=== PATIENT | female | born 1970 | race Caucasian/White ===

== ENCOUNTER 2022-01-21 14:01 | Emergency (ER) | payer OTHER, SELFPAY ==
--- NOTE | ~2022-01-21 | XR_ITS ---
EXAMINATION: XR chest 1V portable Exam Date/Time: 01/21/2022 16:15 CDT CLINICAL HISTORY: leucocytosis. weakness Comparison: None available. RESULT: Lines, tubes, and devices: None. Lungs and pleura: Clear. Cardiomediastinal silhouette: Stable cardiomediastinal silhouette. Other: No acute osseous or upper abdominal finding. IMPRESSION: No acute cardiopulmonary process Reviewed, dictated and finalized at location K.
[2022-01-21 14:35] VITALS: BP 141/67; PULSE 105; RESP 16; TEMP 36.3; O2SAT 92
[2022-01-21 14:44] LABS: Glucose Point of Care 173 mg/dl (65-105)
[2022-01-21] MEDS: ACETAMINOPHEN 325 MG TABLET 650 MG PO (14:49)
[2022-01-21] MEDS: guaiFENesin 12 HR 600 MG TABCR PO (14:49)
[2022-01-21] MEDS: SODIUM CHLORIDE 0.9% IV 1,000 ML 999 ML IV CONT (14:55)
[2022-01-21 15:05] LABS: Hematocrit 41.4 % (35.0-49.0); Hemoglobin 13.2 g/dL (12.0-15.0); Mean Corpuscular HGB Conc 31.9 g/dL (32.0-36.0); Mean Corpuscular Hemoglobin 28.6 pg (27.0-31.0); Mean Corpuscular Volume 89.8 fL (78.0-102.0); Mean Platelet Volume 9.8 fl (9.2-11.8); Platelet Count Result 360 K/mm3 (150-420); Red Blood Count 4.61 M/mm3 (4.20-5.40); Red Cell Distribution Width 13.7 % (11.6-14.4)
[2022-01-21 15:09] LABS: White Blood Count 30.4 K/mm3 (4.8-10.8)
[2022-01-21 15:16] LABS: Alanine Aminotransferase 34 U/L (14-59); Albumin Level 3.5 g/dL (3.4-5.0); Alkaline Phosphatase 137 U/L (46-116); Anion Gap 11 mmol/L (8-16); Aspartate Amino Transferase 13 U/L (15-37); Bilirubin,Total 0.6 mg/dL (0.00-1.00); Blood Urea Nitrogen 11 mg/dL (7-18); Calcium 8.6 mg/dL (8.5-10.1); Carbon Dioxide 26 mmol/L (21-32); Chloride 97 mmol/L (98-108); Estimated CRCL calculation 88 ml/min; Estimated Glomerular Filt Rate > 60; Glucose 152 mg/dL (70-99); Osmolality Calculated 280 mOsm/kg (285-295); Potassium 3.5 mmol/L (3.5-5.1); Sodium 134 mmol/L (136-145); Total Protein 8.2 g/dL (6.4-8.2)
[2022-01-21 15:17] LABS: Influenza Control Valid (Valid)
[2022-01-21 15:27] LABS: Band Neutrophils Percent 1 % (0-6); Basophils Percent Manual 0 % (0-1); Eosinophils Percent Manual 0 % (1-6); Lymphocytes Absolute Manual 1.21 K/mm3 (1.1-4.5); Lymphocytes Percent Manual 4 % (18-44); Monocytes Absolute Manual 0.91 K/mm3 (0.1-0.90); Monocytes Percent Manual 3 % (3-9); Neutrophils Absolute Manual 28.27 K/mm3 (1.7-7.2); Neutrophils Percent Manual 92 % (46-73); Platelet Estimate Adequate (Adequate); Total Cells Counted 100
[2022-01-21] MEDS: ONDANSETRON INJ 4 MG/2 ML VIAL IV PUSH (15:37)
--- NOTE | 2022-01-21 15:52 | PC.NURSE ---
Pt ambulatory to restroom. Pt states that she was unable to provide urine sample. ERP aware and says it is no longer needed.
--- NOTE | 2022-01-21 16:19 | ED.GENADULT ---
HPI - General Adult General Chief complaint: Unspecified Stated complaint: throat pain/dehydration/vomiting/Dizzy Time Seen by Provider: 01/21/22 14:03 Source: patient, RN notes reviewed and old records reviewed Mode of arrival: ambulatory Limitations: no limitations History of Present Illness Onset (ago): day(s) (2) Location: mouth Radiation: non-radiation Severity: mild Severity scale (1-10): 3 Quality: aching Pain Consistency: constant Relieving factors: none Exacerbating factors: none Treatments prior to arrival: NSAID Related Data Home Medications Medication Instructions Recorded Confirmed Lipitor 20 mg DAILY 01/21/22 01/21/22 Lipitor 40 mg DAILY 01/21/22 01/21/22 Singulair 10 mg DAILY 01/21/22 01/21/22 Symbicort 2 puff BID 01/21/22 01/21/22 ibuprofen 600 ng HS 01/21/22 01/21/22 losartan 25 mg DAILY 01/21/22 01/21/22 metformin 500 mg DAILY 01/21/22 01/21/22 omeprazole 40 mg DAILY 01/21/22 01/21/22 venlafaxine 150 mg DAILY 01/21/22 01/21/22 Allergies Allergy/AdvReac Type Severity Reaction Status Date / Time prochlorperazine Allergy Hives Verified 01/21/22 14:23 [From Compazine] Review of Systems Review of Systems: All systems reviewed & are unremarkable except as noted in HPI and below PMFSH Past Medical History Medical History (Updated 01/21/22 @ 16:51 by Halima Pedraza MD) Strep pharyngitis Exam Const: General: cooperative, no acute distress and alert Nutritional Appearance: obese Orientation/consciousness: oriented to person, oriented to place and patient oriented x3 HENMT: Head: normal to inspection, normocephalic and atraumatic Ears: hearing grossly normal bilaterally, external ears normal, TM's normal bilaterally and EAC's normal General nose exam: Normal external nose present and Normal nares present Face and sinus: normal facial exam and sinuses nontender Mouth: Yes Normal oral and palatal mucosa present, Yes lip normal, Yes tongue normal and Yes moist mucous membranes (mild pharyngeal hyperemia.) Throat: posterior oropharynx abnormal (no acute pharyngeal swelling or exudates.) Eyes: General: appearance normal, both eyes and all related structures Periorbital: periorbital findings normal Eyelids: eyelids normal Conjunctivae: conjunctivae normal Sclera: sclerae normal Cornea: corneas normal Pupils: Equal, round and reactive pupils present EOM: EOMs intact bilaterally Neck: Neck: normal visual inspection, full ROM, no lymphadenopathy and no meningeal signs Lymphatic: no lymphadenopathy noted Chest: Chest palpation & inspection: normal inspection of the chest Resp: Effort & Inspection: normal respiratory effort and able to speak in complete sentences Auscultation: clear to auscultation bilaterally Cardio: Jugular venous distension: no JVD Rate: regular rate Rhythm: regular rhythm GI: Inspection: normal to inspection GI Palp: No abdominal tenderness Auscultation: normal bowel sounds : General: Yes bladder normal to inspection and Yes bladder normal to palpation Back/Spine/Pelvis: Back: no CVA tenderness Cervical Spine: cervical ROM normal Thoracic/Lumbar Spine: thoracic and lumbar spine normal to inspection and thoraco-lumbar ROM normal Skin: General skin exam: normal color and no rashes or lesions noted Neuro: General: oriented to person, oriented to place, oriented to time and moves all extremities Cranial nerves: Yes CN's II-XII intact bilaterally, Yes Facial sensation intact/muscles of mastication intact, Yes Intact sense of smell present, Yes Equal, round and reactive pupils present and Yes Bilaterally intact EOM present Cognition (Neuro): normal cognition Speech: normal speech Gait exam (Neuro): Normal gait present Motor exam (neuro): 5/5 motor strength present throughout Extrem: General: normal to inspection, full ROM, capillary refill normal and normal exam except as noted Psych: Appearance: grossly normal and well kempt Mental Status: mental status gr
[2022-01-21 16:51] VITALS: BP 135/70; PULSE 90; RESP 16; O2SAT 93
== END 2022-01-21 16:54 | disposition home or self-care (01) ==
PROVIDERS: Emergency Provider Emergency Medicine; PCP Family Medicine
DX: J02.0 Streptococcal pharyngitis (principal)
CPT/HCPCS: 71045; 80053; 82948; 85025; 87804; 87880; 96361; 96365; 96375; 99284; A9270; J0696; J2405; J7030